=== PATIENT | female | born 1955 | race Asian ===

== ENCOUNTER → 2023-03-17 14:47 | Outpatient (CLI) | payer MEDICARE, OTHER, SELFPAY ==
--- NOTE | 2023-03-18 09:53 | DI.NM.S_ITS ---
DATE OF SERVICE: PROCEDURE: Exercise stress test. INDICATIONS: Shortness of breath. CARDIAC STRESS: Patient underwent exercise stress test under the supervision of an attending staff. She just walked on Ye protocol for 1 minute and 24 seconds and achieved maximum heart rate of 152, which was 99% of predicted heart rate. Resting blood pressure 138/82 mmHg and peak blood pressure 180/108 mmHg. She became very dyspneic, hence, test was discontinued. Resting oxygen saturation was 91% and during exercise 90%. Baseline rhythm was sinus. During stress, no convincing ischemic changes seen. In 3 minutes, heart rate returned back to resting state. She had some few PACs. No complicated arrhythmias. No chest pain. KADE positive 70%. CONCLUSION: Exercise stress test is negative for inducible ischemia. Markedly diminished exercise tolerance. The patient walked on Ye protocol for 1 minute and 24 seconds. Enhanced chronotropic response. Within 1 minute 24 seconds, maximum heart rate achieved 152 beats per minute. Peak blood pressure 180/108. No complicated arrhythmias. No chest pain. Resting oxygen saturation 91% and stress oxygen saturation was about 90%. RECOMMENDATION: Correlate clinically. Consider workup for POTS, postural orthostatic tachycardia syndrome, as well. MarchTy - JES/diane/bhavana doc#: [id number]/job#: [id number] dd: 03/17/2023 17:00:00 dt: 03/17/2023 21:45:00 DICTATING /COPIES TO: Mateo Mcguire MD COPIES MNE: PARMINDER;
== END ==
PROVIDERS: PCP Internal Medicine; Referring Provider Internal Medicine; Visit Provider Internal Medicine
DX: R06.09 Other forms of dyspnea (principal); R06.02 Shortness of breath
CPT/HCPCS: 93017